=== PATIENT | female | born 1955 | race Caucasian/White ===

== ENCOUNTER 2021-10-23 14:14 | Emergency (ER) | payer MEDICARE ==
[~2021-10-23] VITALS: Ht 154.9 cm; Wt 40.0 kg
[2021-10-23 14:38] VITALS: BP 149/74
[2021-10-23] MEDS ORDERED: IBUP-2029 MT (16:44)
== END 2021-10-23 17:09 | disposition home or self-care (01) ==
LOC: ER 14:14
DX: M54.89 Other dorsalgia (principal); M25.511 Pain in right shoulder; N64.4 Mastodynia
CPT/HCPCS: 71045; 73030; 99284

== ENCOUNTER 2021-10-30 19:06 | Emergency (ER) | payer BC, MEDICARE ==
[~2021-10-30] VITALS: Ht 154.9 cm; Wt 43.5 kg
[~2021-10-30 19:06] MED LIST: IBUP-2029 MT
[2021-10-30 22:58] LABS: BASOPHILS % 0.3 % (0.0-2.0); HEMATOCRIT. 40.7 % (36.0-48.0); HEMOGLOBIN. 13.5 g/dL (12.0-16.0); LYMPHOCYTES % 27.5 % (20.0-50.0); MEAN CORPUSCULAR HEMOGLOBIN 29.5 pg (28.0-32.0); MEAN CORPUSCULAR VOLUME 88.8 fL (81.0-99.0); MONOCYTES % 9.8 % (2.0-8.0); NEUTROPHILS % 61.4 % (40.0-76.0); PLATELET 252 x1000/uL (130-400); RED BLOOD CELL COUNT 4.58 mill/uL (4.2-5.4); RED CELL DISTRIBUTION WIDTH 13.5 % (11.6-14.6)
[2021-10-30 23:04] LABS: CHLORIDE 107 mEq/L (98-107)
[2021-10-30 23:29] LABS: CLARITY URINE CLEAR (CLEAR); COLOR URINE YELLOW (YELLOW); KETONES URINE TRACE (NEGATIVE); LEUKOCYTE ESTERASE URINE NEGATIVE (NEGATIVE); NITRITE URINE NEGATIVE (NEGATIVE); OCCULT BLOOD URINE TRACE (NEGATIVE); PH URINE 6.5 (4.5-8.0); PROTEIN URINE NEGATIVE (NEGATIVE); SPECIFIC GRAVITY URINE 1.021 (1.005-1.030); UROBILINOGEN URINE 0.2 E.U./dL (0.2-1.0)
[2021-10-31] MEDS ORDERED: KETOROLAC 15MG/ML VIAL IV ONE (01:30)
[2021-10-31 01:33] VITALS: BP 131/65
[2021-10-31] MEDS ORDERED: ACET-2708 MT (01:59)
== END 2021-10-31 02:32 | disposition home or self-care (01) ==
LOC: ER 19:27
DX: R10.11 Right upper quadrant pain (principal); R11.10 Vomiting, unspecified
CPT/HCPCS: 36415; 71045; 74176; 76700; 80053; 81003; 83605; 83690; 83880; 84484; 85025; 93005; 96374; 99285; J1885

== ENCOUNTER 2023-08-15 10:05 | Emergency (ER) | payer BC, MEDICARE ==
[~2023-08-15] VITALS: Ht 165.1 cm; Wt 55.0 kg
[~2023-08-15 10:05] MED LIST changes: +ACET-2708 MT
[2023-08-15 10:12] VITALS: O2SAT 100
[2023-08-15] MEDS ORDERED: SODIUM CHLORIDE 0.9% 1,000 ML IV ONE (10:30)
[2023-08-15 11:11] LABS: HEMATOCRIT. 40.2 % (36.0-48.0); HEMOGLOBIN. 13.5 g/dL (12.0-16.0); MEAN CORPUSCULAR HEMOGLOBIN 30.5 pg (28.0-32.0); MEAN CORPUSCULAR HGB CONC 33.6 g/dL (31.0-37.0); MEAN CORPUSCULAR VOLUME 90.8 fL (81.0-99.0); MEAN PLATELET VOLUME 7.9 fl (7.4-10.4); PLATELET 180 x1000/uL (130-400); RED BLOOD CELL COUNT 4.42 mill/uL (4.2-5.4); RED CELL DISTRIBUTION WIDTH 13.6 % (11.6-14.6); WHITE BLOOD COUNT 9.7 x1000/uL (4.5-11.0)
[2023-08-15 11:15] LABS: DIFFERENTIAL COMMENT 1
[2023-08-15] MEDS: SODIUM CHLORIDE 0.9% 1,000 ML IV ONE ×2 (11:21→13:17)
[2023-08-15 11:41] LABS: ALANINE AMINOTRANSFERASE 23 IU/L (10-49); ALBUMIN 4.1 g/dL (3.2-4.8); ASPARTATE AMINOTRANSFERASE 28 IU/L (<34); BILIRUBIN TOTAL 0.6 mg/dL (0.1-1.0); CALCIUM 8.9 mg/dL (8.7-10.4); CARBON DIOXIDE 26 mEq/L (21-32); CHLORIDE 105 mEq/L (98-107); CREATININE 0.6 mg/dL (0.6-1.0); GLUCOSE 102 mg/dL (70-105); POTASSIUM 3.6 mEq/L (3.5-5.1); PROTEIN TOTAL 6.7 g/dL (6.0-8.3); SODIUM 138 mEq/L (136-145); UREA NITROGEN BLOOD 7 mg/dL (9-23)
[2023-08-15 12:01] LABS: TROPONIN I HIGH SENSITIVITY < 4 ng/L (3.0-34)
[2023-08-15 13:15] LABS: PLATELET ESTIMATE NORMAL
[2023-08-15] MEDS ORDERED: ACETAMINOPHEN 325MG TABLET PO ONE (13:15)
[2023-08-15] MEDS ORDERED: KETOROLAC 30MG/ML VIAL IV ONE (13:30)
[2023-08-15 14:10] VITALS: BP 108/74; PULSE 111; RESP 20
[2023-08-15] MEDS ORDERED: TAM75 MT (14:12)
[2023-08-15 14:24] VITALS: TEMP 100
== END 2023-08-15 15:19 | disposition home or self-care (01) ==
LOC: ER 10:05
DX: R55 Syncope and collapse (principal); Z20.822 Contact with and (suspected) exposure to COVID-19
CPT/HCPCS: 80053; 83880; 83605; 85025; 85610; 87420; 84484; 87804 ×2; 36415; 71045; 93005; 96360; 96361; 99285; 87426; J7030; C9803; Z7610

== ENCOUNTER 2024-02-13 17:32 | Emergency (ER) | payer MEDICARE, BC ==
[~2024-02-13] VITALS: Ht 152.4 cm; Wt 54.5 kg
[~2024-02-13 17:32] MED LIST changes: +TAM75 MT
[2024-02-13 17:41] VITALS: O2SAT 100
[2024-02-13 19:03] LABS: BASOPHILS % 0.4 % (0.0-2.0); HEMATOCRIT. 40.8 % (36.0-48.0); HEMOGLOBIN. 13.4 g/dL (12.0-16.0); LYMPHOCYTES % 34.7 % (20.0-50.0); MEAN CORPUSCULAR HGB CONC 32.8 g/dL (31.0-37.0); MEAN CORPUSCULAR VOLUME 91.5 fL (81.0-99.0); MEAN PLATELET VOLUME 8.7 fl (7.4-10.4); MONOCYTES % 8.6 % (2.0-8.0); NEUTROPHILS % 55.3 % (40.0-76.0); PLATELET 257 x1000/uL (130-400); RED BLOOD CELL COUNT 4.46 mill/uL (4.2-5.4); RED CELL DISTRIBUTION WIDTH 13.4 % (11.6-14.6); WHITE BLOOD COUNT 7.8 x1000/uL (4.5-11.0)
[2024-02-13 19:04] LABS: CLARITY URINE CLEAR (CLEAR); COLOR URINE YELLOW (YELLOW); GLUCOSE URINE NEGATIVE (NEGATIVE); KETONES URINE NEGATIVE (NEGATIVE); LEUKOCYTE ESTERASE URINE NEGATIVE (NEGATIVE); NITRITE URINE NEGATIVE (NEGATIVE); OCCULT BLOOD URINE NEGATIVE (NEGATIVE); PROTEIN URINE NEGATIVE (NEGATIVE); SPECIFIC GRAVITY URINE 1.007 (1.005-1.030); UROBILINOGEN URINE 0.2 E.U./dL (0.2-1.0)
[2024-02-13 19:08] LABS: CHLORIDE 106 mEq/L (98-107); SODIUM 140 mEq/L (136-145)
[2024-02-13 19:09] LABS: CALCIUM 9.7 mg/dL (8.7-10.4); CARBON DIOXIDE 28 mEq/L (21-32)
[2024-02-13 19:14] LABS: CREATININE 0.6 mg/dL (0.6-1.0); GLUCOSE 88 mg/dL (70-105); UREA NITROGEN BLOOD 8 mg/dL (9-23)
[2024-02-13 19:16] LABS: ALANINE AMINOTRANSFERASE 12 IU/L (10-49); ASPARTATE AMINOTRANSFERASE 25 IU/L (<34); BILIRUBIN TOTAL 0.3 mg/dL (0.1-1.0); PROTEIN TOTAL 7.5 g/dL (6.0-8.3)
[2024-02-13 19:17] LABS: BILIRUBIN DIRECT < 0.1 mg/dL (<=3.0)
[2024-02-13 20:16] VITALS: BP 140/65; PULSE 68; RESP 15; TEMP 98.2
== END 2024-02-13 20:21 | disposition home or self-care (01) ==
LOC: ER 17:32
DX: K64.8 Other hemorrhoids (principal); I10 Essential (primary) hypertension
CPT/HCPCS: 36415; 80048; 80076; 81003; 85025; 86850; 86900; 93005; 99284

== ENCOUNTER → 2024-07-09 | Outpatient (CLI) | payer MEDICARE, BC ==
[~2024-07-09] MED LIST changes: +IOHEXOL-300 100 ML BOTTLE ONE
== END | disposition home or self-care (01) ==
LOC: CT 09:34
PROVIDERS: ATTEND Internal Medicine Geriatric Medicine
DX: K76.89 Other specified diseases of liver (principal); K42.9 Umbilical hernia without obstruction or gangrene; N20.0 Calculus of kidney; K59.09 Other constipation
CPT/HCPCS: 74177; Q9967